=== PATIENT | male | born 2000 | race Caucasian/White ===

== ENCOUNTER 2019-08-08 20:00 | Emergency (ER) | payer SELFPAY ==
[~2019-08-08] VITALS: Ht 177.8 cm; Wt 82.0 kg
[2019-08-08] MEDS ORDERED: ONDANSETRON HCL 4MG/2ML INJ IV STA (20:38)
[2019-08-08] MEDS ORDERED: MORPHINE SULFATE 4 MG/ML CPJ (NOT FOR IM USE) IV STA (20:38)
[2019-08-08] MEDS ORDERED: KETOROLAC 30MG/ML VIAL IV STA (20:38)
[2019-08-08] MEDS ORDERED: SODIUM CHLORIDE 0.9% 1,000 ML IV ONE (20:38)
[2019-08-08] MEDS ORDERED: LIDOCAINE HCL/PF 1% 10 MG/ML 5ML VIAL IJ ONE (20:45)
[2019-08-08] MEDS ORDERED: TETANUS, DIPHTHERIA, PERTUSSIS VAC/PF 0.5ML (>7YR OLD) IM ONE (20:45)
[2019-08-08] MEDS ORDERED: BACITRACIN ZINC OINT UDPKT TOP ONE (20:45)
[2019-08-08 21:05] LABS: EOSINOPHILS % 3.5 % (0.0-5.0); HEMATOCRIT. 46.3 % (42.0-52.0); HEMOGLOBIN. 16.2 g/dL (14.0-18.0); MEAN CORPUSCULAR HEMOGLOBIN 30.3 pg (28.0-32.0); MEAN CORPUSCULAR VOLUME 86.8 fL (80.0-94.0); MEAN PLATELET VOLUME 9.6 fl (7.4-10.4); MONOCYTES % 9.2 % (2.0-8.0); NEUTROPHILS % 62.3 % (40.0-76.0); PLATELET 245 x1000/uL (130-400); RED BLOOD CELL COUNT 5.34 mill/uL (4.7-6.1); RED CELL DISTRIBUTION WIDTH 13.2 % (11.6-14.6)
[2019-08-08 21:10] LABS: CHLORIDE 110 mEq/L (98-107)
[2019-08-08 21:14] LABS: ETHANOL BLOOD < 10 mg/dL
[2019-08-08] MEDS ORDERED: MORPHINE SULFATE 4 MG/ML CPJ (NOT FOR IM USE) IV ONE (22:00)
[2019-08-08] MEDS ORDERED: LORAZEPAM 2MG/ML CPJ IV ONE (22:00)
[2019-08-08] MEDS ORDERED: CEFAZOLIN 1000MG PREMIX 50 ML IV ONE (22:00)
[2019-08-08] MEDS ORDERED: BACITRACIN 15GM TUBE TOP NR (23:00)
[2019-08-08 23:59] VITALS: BP 128/72
== END 2019-08-09 00:10 | disposition home or self-care (01) ==
LOC: ER 20:00
DX: S16.1XXA Strain of muscle, fascia and tendon at neck level, initial encounter (principal); S39.012A Strain of muscle, fascia and tendon of lower back, initial encounter; S61.411A Laceration without foreign body of right hand, initial encounter; S20.219A Contusion of unspecified front wall of thorax, initial encounter; F17.200 Nicotine dependence, unspecified, uncomplicated; V43.52XA Car driver injured in collision with other type car in traffic accident, initial encounter; Y93.9 Activity, unspecified; Y92.410 Unspecified street and highway as the place of occurrence of the external cause
CPT/HCPCS: 12002; 36415; 70450; 71045; 72100; 72125; 80053; 80320; 83690; 84484; 85025; 90471; 90715; 93005; 96365; 96375; 96376; 99284; J0690; J1885; J2060; J2270; J2405; J3490; J7030; Z7610; G0480

== ENCOUNTER 2019-08-15 13:46 | Emergency (ER) | payer SELFPAY ==
[~2019-08-15] VITALS: Ht 167.6 cm; Wt 86.0 kg
[2019-08-15 13:50] VITALS: BP 141/82
== END 2019-08-15 15:47 | disposition home or self-care (01) ==
LOC: ER 13:46
DX: Z48.00 Encounter for change or removal of nonsurgical wound dressing (principal)
CPT/HCPCS: 99281

== ENCOUNTER 2019-08-24 20:30 | Emergency (ER) | payer SELFPAY ==
[~2019-08-24] VITALS: Ht 165.1 cm; Wt 87.0 kg
[2019-08-24 20:47] VITALS: BP 139/82
== END 2019-08-24 22:48 | disposition home or self-care (01) ==
LOC: ER 20:30
DX: S61.411D Laceration without foreign body of right hand, subsequent encounter (principal); F12.10 Cannabis abuse, uncomplicated; X58.XXXD Exposure to other specified factors, subsequent encounter
CPT/HCPCS: 99281